=== PATIENT | female | born 1985 | race Caucasian/White ===

== ENCOUNTER 2017-07-13 13:43 | Emergency (ER) | payer OTHER ==
[~2017-07-13] VITALS: Ht 182.9 cm; Wt 109.0 kg
[2017-07-13 13:45] VITALS: BP 127/81; PULSE 112; RESP 18; TEMP 98.4; O2SAT 99
[2017-07-13 14:55] LABS: AUTOMATED NEUTROPHIL # 9.3 TH/MM3 (1.8-7.7); BASOPHIL # 0.1 TH/MM3 (0-0.2); BASOPHIL % 0.7 % (0.0-2.0); EOSINOPHIL # 0.1 TH/MM3 (0-0.4); HEMATOCRIT 37.1 % (35.0-46.0); HEMO FLAGS DIFF FINAL; LYMPH % 21.8 % (9.0-44.0); LYMPHOCYTE # 2.8 TH/MM3 (1.0-4.8); MEAN CELL VOLUME 87.8 FL (80.0-100.0); MEAN CORPUSCULAR HEMOGLOBIN 30.2 PG (27.0-34.0); MEAN CORPUSCULAR HGB CONC 34.4 % (32.0-36.0); MONO % 4.6 % (0.0-8.0); NEUT % 71.9 % (16.0-70.0); PLATELET COUNT 195 TH/MM3 (150-450); RED BLOOD COUNT 4.23 MIL/MM3 (4.00-5.30); RED CELL DISTRIBUTION WIDTH 13.1 % (11.6-17.2); WHITE BLOOD COUNT 12.9 TH/MM3 (4.0-11.0)
[2017-07-13 14:59] LABS: BACTERIA, URINE FEW /hpf; BLOOD, URINE NEG (NEG); COMMENT (UR) CULT NOT INDICATED; CULTURE IF INDICATED CULT NOT INDICATED; GLUCOSE,URINE NEG (NEG); KETONE, URINE TRACE mg/dL (NEG); NITRITE,URINE NEG (NEG); PH, URINE 6.5 (5.0-8.5); URINE COLOR LIGHT-YELLOW (YELLW/STRAW)
[2017-07-13] MEDS ORDERED: ACETAMINOPHEN 500 MG CPLT PO ONE (15:00)
[2017-07-13 15:05] LABS: APTT (PATIENT) 29.3 SEC (24.3-30.1); INTERNATIONAL NORMALIZED RATIO 0.9 RATIO; PROTHROMBIN TIME - PATIENT 10.2 SEC (9.8-11.6)
--- NOTE | 2017-07-13 15:14 | PD ---
HPI Chief Complaint: Abdominal Pain Time Seen by Provider: 14:44 Travel History International Travel<30 days: No Contact w/Intl Traveler<30days: No Traveled to known affect area: No History of Present Illness HPI 32-year-old female presents to emergency department complaining of right lower quadrant pain since Thursday afternoon. Patient describes this pain as constant, 7 out of 10 with occasional sharp pain. Denies radiation of pain. Pain not associated with food. States that she has had no appetite and "feels sick" since Thursday. She does have occasional nausea without vomiting or diarrhea. Patient denies fever, chills. Denies vaginal discharge or irritation. Denies dysuria or other urinary complaints. She saw her occupational therapy technician today where she did an ultrasound and confirmed the viability of the fetus. Her occupational therapy technician recommended she come to the emergency department for concern of appendicitis. Patient denies chronic medical issues or medication use. Patient took Tylenol yesterday for pain which provided her no relief and has not taken anything today. PFSH Past Medical History ?: Social History Tobacco Use: No Allergies-Medications (Allergen,Severity, Reaction): Coded Allergies: No Known Allergies (Unverified , 07/13/17) Reported Meds & Prescriptions Reported Meds & Active Scripts Active Macrobid (Nitrofurantoin Monoh/Nitrofur Macro) 100 Mg Cap 100 Mg PO BID 7 Days Reported ( Vit-Ferrous Fumarate) 27 Mg Iron-1 Mg Tab 1 Tab PO DAILY Review of Systems Except as stated in HPI: all other systems reviewed are Neg Physical Exam Narrative GENERAL: Well-developed well-nourished SKIN: Focused skin assessment warm/dry. HEAD: Atraumatic. Normocephalic. EYES: Pupils equal and round. No scleral icterus. No injection or drainage. ENT: No nasal bleeding or discharge. Mucous membranes pink and moist. NECK: Trachea midline. No JVD. CARDIOVASCULAR: Regular rate and rhythm. No murmur appreciated. RESPIRATORY: No accessory muscle use. Clear to auscultation. Breath sounds equal bilaterally. GASTROINTESTINAL: Abdomen soft, nondistended. Hepatic and splenic margins not palpable. Negative psoas, TTP to left and right lower quadrants. Negative Rovsing's. Negative [place] or ecchymosis of her abdomen. Positive rebound. Left lower and right lower quadrants. MUSCULOSKELETAL: No obvious deformities. No clubbing. No cyanosis. No edema. NEUROLOGICAL: Awake and alert. No obvious cranial nerve deficits. Motor grossly within normal limits. Normal speech. PSYCHIATRIC: Appropriate mood and affect; insight and judgment normal. Data Data Last Documented VS Vital Signs Date Time Temp Pulse Resp B/P (MAP) Pulse Ox O2 Delivery O2 Flow Rate FiO2 07/13/17 19:30 07/13/17 16:09 95 18 98 Room Air 07/13/17 13:45 98.4 Orders Orders Beta Hcg (Quant/Titer) (07/13/17 14:02) Complete Blood Count With Diff (07/13/17 14:02) Comprehensive Metabolic Panel (07/13/17 14:02) Lipase (07/13/17 14:02) Prothrombin Time / Inr (Pt) (07/13/17 14:02) Act Partial Throm Time (Ptt) (07/13/17 14:02) Urinalysis - C+S If Indicated (07/13/17 14:02) Acetaminophen (Tylenol) (07/13/17 15:00) Us Abdomen Lower Limited (07/13/17 ) Piperacil-Tazo 3.375 Gm Premix (Zosyn 3. (07/13/17 15:30) Sodium Chlorid 0.9% 500 Ml Inj (Ns 500 M (07/13/17 15:30) Mri Abdomen W/O Contrast (07/13/17 ) Nitrofurantoin Monohyd Macrocr (Macrobid (07/13/17 19:15) Ed Discharge Order (07/13/17 19:04) Labs Laboratory Tests Test 07/13/17 14:41 White Blood Count 12.9 TH/MM3 Red Blood Count 4.23 MIL/MM3 Hemoglobin 12.8 GM/DL Hematocrit 37.1 % Mean Corpuscular Volume 87.8 FL Mean Corpuscular Hemoglobin 30.2 PG Mean Corpuscular Hemoglobin Concent 34.4 % Red Cell Distribution Width 13.1 % Platelet Count 195 TH/MM3 Mean Platelet Volume 8.6 FL Neutrophils (%) (Auto) 71.9 % Lymphocytes (%) (Auto) 21.8 % Monocytes (%) (Auto) 4.6 % Eosinophils (%) (Auto) 1.0 % Basophils (%) (Auto) 0.7 % Neutrophils # (Auto) 9.3 TH/MM3 Lymphocytes # (Auto) 2.8 TH/MM3 Monocytes # (Auto) 0.6 TH/MM3 Eosinophils # (Auto) 0.1 TH/MM3 Basophils # (Auto) 0.1 TH/MM3 CBC Comment DIFF FINAL Differential Comment Prothrombin Time 10.2 SEC Prothromb Time International Ratio 0.9 RATIO Activated Partial Thromboplast Time 29.3 SEC Urine Color LIGHT-YELLOW Urine Turbidity CLEAR Urine pH 6.5 Urine Specific [place] 1.002 Urine Protein NEG mg/dL Urine Glucose (UA) NEG mg/dL Urine Ketones TRACE mg/dL Urine Occult Blood NEG Urine Nitrite NEG Urine Bilirubin NEG Urine Urobilinogen LESS THAN 2.0 MG/DL Urine Leukocyte Esterase SMALL Urine RBC LESS THAN 1 /hpf Urine WBC 2 /hpf Urine Bacteria FEW /hpf Microscopic Urinalysis Comment CULT NOT INDICATED Blood Urea Nitrogen 5 MG/DL Creatinine 0.68 MG/DL Random Glucose 81 MG/DL Total Protein 7.4 GM/DL Albumin 3.1 GM/DL Calcium Level 8.7 MG/DL Alkaline Phosphatase 85 U/L Aspartate Amino Transf (AST/SGOT) 14 U/L Alanine Aminotransferase (ALT/SGPT) 18 U/L Total Bilirubin 0.2 MG/DL Sodium Level 135 MEQ/L Potassium Level 3.3 MEQ/L Chloride Level 101 MEQ/L Carbon Dioxide Level 24.6 MEQ/L Anion Gap 9 MEQ/L Estimat Glomerular Filtration Rate 100 ML/MIN Lipase 111 U/L Human Chorionic Gonadotropin, Quant 81611 MIU/ML [facility] Medical Decision Making Medical Screen Exam Complete: Yes Emergency Medical Condition: Yes Differential Diagnosis Appendicitis versus round ligament pain versus nonspecific abdominal pain Narrative Course 32-year-old female presents to emergency department complaining of right lower quadrant pain since Thursday afternoon. Patient describes this pain as constant, 7 out of 10 with occasional sharp pain. Denies radiation of pain. Pain not associated with food. States that she has had no appetite and "feels sick" since Thursday. She does have occasional nausea without vomiting or diarrhea. Patient denies fever, chills. Denies vaginal discharge or irritation. Denies dysuria or other urinary complaints. She saw her occupational therapy technician today where she did an ultrasound and confirmed the viability of the fetus. Her occupational therapy technician recommended she come to the emergency department for concern of appendicitis. Patient denies chronic medical issues or medication use. Patient took Tylenol yesterday for pain which provided her no relief and has not taken anything today. Physical exam demonstrates concern for appendicitis. Vital signs: Tachycardic at 114, Fluid challenge for tachycardia. Labs: WBC 12.9, likely secondary to status Zosyn administered in ED. Ultrasound: unable to visualize appendix. Discussed risks vs benefits to MRI and CT. MRI chosen but caused significant delay in disposition. MRI visualized a non-inflamed appendix and no radiographic cause of pt symptoms. Because of bacteriuria, symptoms, and status, treat for UTI. Discharged with macrobid and continue Tylenol outpatient. I had an extensive discussion with pt and family regarding likely diagnosis and recommended follow up with occupational therapy technician tomorrow. Return to the ED for worsening symptoms. Diagnosis Primary Impression: UTI (urinary tract infection) during Qualified Codes: O23.40 - Unspecified infection of urinary tract in , unspecified trimester Additional Impression: Abdominal pain during Qualified Codes: O26.899 - Other specified related conditions, unspecified trimester; R10.9 - Unspecified abdominal pain Referrals: Transformation Lead Additional Instructions: If your symptoms persist or worsen return to the emergency department Follow-up with her occupational therapy technician within 2 days Scripts Nitrofurantoin Monohydrate Macrocrystals (Macrobid) 100 Mg Cap 100 MG PO BID for Infection for 7 Days, #14 CAP 0 Refills Prov: Merry Rojas MD 07/13/17 Disposition: 01 DISCHARGE HOME Condition: Stable Denita Dominguez Jul 13, 2017 15:14
[2017-07-13 15:17] LABS: ALT (GPT) 18 U/L (10-53); ANION GAP 9 MEQ/L (5-15); AST (GOT) 14 U/L (15-37); BICARBONATE 24.6 MEQ/L (21.0-32.0); BLOOD UREA NITROGEN 5 MG/DL (7-18); CHLORIDE 101 MEQ/L (98-107); GLOMERULAR FILTRATION RATE 100 ML/MIN (>89); POTASSIUM 3.3 MEQ/L (3.5-5.1); SODIUM (NA) 135 MEQ/L (136-145)
[2017-07-13] MEDS ORDERED: PIPERACIL-TAZO 3.375 GM PREMIX 50 ML IV ONE (15:30)
[2017-07-13] MEDS ORDERED: SODIUM CHLORID 0.9% 500 ML INJ 500 ML IV ONE (15:30)
[2017-07-13 15:36] LABS: ALKALINE PHOSPHATASE 85 U/L (45-117); BETA HCG QUANT 30669 MIU/ML (0-5); TOTAL BILIRUBIN ADULT 0.2 MG/DL (0.2-1.0)
--- NOTE | 2017-07-13 15:48 | PD ---
Physical Exam Date Seen by Provider: Jul 13, 2017 Narrative Patient presents with the chief complaint of right lower quadrant abdominal pain. Onset was 5 days ago. It is about 14 weeks . She was seen by her parking meter collector today who recommended that she come to the emergency department for further evaluation of possible appendicitis Data Data Last Documented VS Vital Signs Date Time Temp Pulse Resp B/P (MAP) Pulse Ox O2 Delivery O2 Flow Rate FiO2 07/13/17 15:37 18 07/13/17 13:45 98.4 112 127/81 (96) 99 Room Air Orders Orders Beta Hcg (Quant/Titer) (07/13/17 14:02) Complete Blood Count With Diff (07/13/17 14:02) Comprehensive Metabolic Panel (07/13/17 14:02) Lipase (07/13/17 14:02) Prothrombin Time / Inr (Pt) (07/13/17 14:02) Act Partial Throm Time (Ptt) (07/13/17 14:02) Urinalysis - C+S If Indicated (07/13/17 14:02) Acetaminophen (Tylenol) (07/13/17 15:00) Us Abdomen Lower Limited (07/13/17 ) Piperacil-Tazo 3.375 Gm Premix (Zosyn 3. (07/13/17 15:30) Sodium Chlorid 0.9% 500 Ml Inj (Ns 500 M (07/13/17 15:30) Labs Laboratory Tests Test 07/13/17 14:41 White Blood Count 12.9 TH/MM3 Red Blood Count 4.23 MIL/MM3 Hemoglobin 12.8 GM/DL Hematocrit 37.1 % Mean Corpuscular Volume 87.8 FL Mean Corpuscular Hemoglobin 30.2 PG Mean Corpuscular Hemoglobin Concent 34.4 % Red Cell Distribution Width 13.1 % Platelet Count 195 TH/MM3 Mean Platelet Volume 8.6 FL Neutrophils (%) (Auto) 71.9 % Lymphocytes (%) (Auto) 21.8 % Monocytes (%) (Auto) 4.6 % Eosinophils (%) (Auto) 1.0 % Basophils (%) (Auto) 0.7 % Neutrophils # (Auto) 9.3 TH/MM3 Lymphocytes # (Auto) 2.8 TH/MM3 Monocytes # (Auto) 0.6 TH/MM3 Eosinophils # (Auto) 0.1 TH/MM3 Basophils # (Auto) 0.1 TH/MM3 CBC Comment DIFF FINAL Differential Comment Prothrombin Time 10.2 SEC Prothromb Time International Ratio 0.9 RATIO Activated Partial Thromboplast Time 29.3 SEC Urine Color LIGHT-YELLOW Urine Turbidity CLEAR Urine pH 6.5 Urine Specific [place] 1.002 Urine Protein NEG mg/dL Urine Glucose (UA) NEG mg/dL Urine Ketones TRACE mg/dL Urine Occult Blood NEG Urine Nitrite NEG Urine Bilirubin NEG Urine Urobilinogen LESS THAN 2.0 MG/DL Urine Leukocyte Esterase SMALL Urine RBC LESS THAN 1 /hpf Urine WBC 2 /hpf Urine Bacteria FEW /hpf Microscopic Urinalysis Comment CULT NOT INDICATED Blood Urea Nitrogen 5 MG/DL Creatinine 0.68 MG/DL Random Glucose 81 MG/DL Total Protein 7.4 GM/DL Albumin 3.1 GM/DL Calcium Level 8.7 MG/DL Alkaline Phosphatase 85 U/L Aspartate Amino Transf (AST/SGOT) 14 U/L Alanine Aminotransferase (ALT/SGPT) 18 U/L Total Bilirubin 0.2 MG/DL Sodium Level 135 MEQ/L Potassium Level 3.3 MEQ/L Chloride Level 101 MEQ/L Carbon Dioxide Level 24.6 MEQ/L Anion Gap 9 MEQ/L Estimat Glomerular Filtration Rate 100 ML/MIN Lipase 111 U/L Human Chorionic Gonadotropin, Quant 47898 MIU/ML MDM Supervised Visit with GIOVANI: Yes Narrative Course I, Dr. Rojas, have reviewed the advance practice practitioner's documentation and am in agreement, met with the patient face to face, made the diagnosis, and the medical decision making was done by me. *My assessment and Findings: The patient walked to the bathroom without any apparent discomfort. She has basically diffuse abdominal pain. It does seem worse in the right lower quadrant. Please see Denita Dominguez PA-C's note for further details, lab and radiology results, final diagnosis and disposition. Condition: Stable Merry Rojas MD Jul 13, 2017 15:48
[2017-07-13 16:09] VITALS: BP 102/61; PULSE 95; RESP 18; O2SAT 98
--- NOTE | 2017-07-13 16:17 | RADRPT ---
EXAM DATE/TIME: 07/13/2017 15:35 [facility] COMPARISON: No previous studies available for comparison. INDICATIONS : Abdominal pain. MEDICAL HISTORY : . SURGICAL HISTORY : None. ENCOUNTER: Initial ACUITY: 4-6 days PAIN SCORE: 4/10 LOCATION: Right lower quadrant AREA EVALUATED: Right lower quadrant. FINDINGS: Ultrasound examination does not demonstrate a definite appendix, free fluid, or focal fluid collectio ns in the right lower quadrant. CONCLUSION: 1. Appendix is not visualized. Kingsley Nicholson MD on July 13, 2017 at 16:13 Board Certified Radiologist. This report was verified electronically.
[2017-07-13] MEDS ORDERED: TRICTAB PO (18:16)
--- NOTE | 2017-07-13 18:51 | RADRPT ---
EXAM DATE/TIME: 07/13/2017 17:39 [facility] COMPARISON: US ABDOMEN - LOWER LIMITED, July 13, 2017, 15:35. INDICATIONS : Appendicitis. Pain, loss of appetite, and nausea. 14 weeks gestation. MEDICAL HISTORY : . SURGICAL HISTORY : [place] teeth removal. ENCOUNTER: Subsequent ACUITY: 4-6 days PAIN SCORE: 3/10 LOCATION: Abdomen. TECHNIQUE: Multiplanar, multisequence magnetic resonance imaging of the abdomen was performed without contrast. FINDINGS: Examination was performed for evaluation of the appendix. The appendix has a normal appearance measur ing 4 mm in diameter. There are no surrounding inflammatory changes appreciated. Terminal ileum also has a normal appearance. There is no significant free fluid in the pelvis. There is a single intrauterine gestation identified. Please note that this examination was not perfor med for evaluation of the fetus. Urinary bladder demonstrates no abnormality. The visualized portions of the liver, kidneys, and spleen are within normal limits. CONCLUSION: Appendix is normal. Additionally, no acute finding is identified within the abdomen or pelvis. Octavio Gallardo MD on July 13, 2017 at 18:46 Board Certified Radiologist. This report was verified electronically.
[2017-07-13] MEDS ORDERED: MACR100C2 PO (19:02)
[2017-07-13] MEDS ORDERED: NITROFURANTOIN MONOHYD MACROCR 100 MG CAP PO ONE (19:15)
== END 2017-07-13 19:37 | disposition home or self-care (01) ==
LOC: NEPD 13:43
DX: O23.42 Unspecified infection of urinary tract in pregnancy, second trimester (principal); O26.892 Other specified pregnancy related conditions, second trimester; R10.31 Right lower quadrant pain; Z3A.14 14 weeks gestation of pregnancy
CPT/HCPCS: 74181; 76705; 80053; 81001; 83690; 84702; 85025; 85610; 85730; 96365; 96366; 99285; J2543; J7040

== ENCOUNTER 2018-01-19 09:16 | Inpatient (IN) | payer OTHER ==
[~2018-01-19] VITALS: Ht 182.9 cm; Wt 117.0 kg
[2018-01-19] VITALS (74 sets, daily range): BP systolic 68–159; BP diastolic 43–124; PULSE 89–248; RESP 16–18; TEMP 98.1–98.2
[~2018-01-19 09:16] MED LIST: MACR100C2 PO; TRICTAB PO
[2018-01-19] MEDS ORDERED: LACTATED RINGER'S 1000 ML INJ 1,000 ML IV PRN (09:19)
[2018-01-19] MEDS ORDERED: LACTATED RINGER'S 1000 ML INJ 1,000 ML IV SCH (09:19)
--- NOTE | 2018-01-19 09:27 | HHI.HP ---
HPI Chief Complaint postdates labor induction Date Seen: January 19, 2018 Time Seen: 09:20 Travel History International Travel<30 Days: No Contact w/Intl Traveler<30Days: No Known Affected Area: No History of Present Illness HPI 32 yo with zelaya IUP at 40w6d by 13 week sonogram seen in office for care, no spontaneous labor, now postdates, for labor induction. When in office 01/18/18 was 3/50/-1, has proven pelvis. Plan for pitocin/AROM induction. Pt c/o mild cramping, no regular contractions, no LOF or VB, endorses good FM. Pain 2/10 low pelvis, pressure. Weeks Gestation: 41 Para: 1 : 2 Last Menstrual Period: Apr 16, 2017 Miscarriage: 0 : 0 History Past Medical History Narrative Medical negative Obstetric History Obstetric History G1 = FT 39 wks female infant "Adyson" G2 = current male fetus Past Surgical History Surgical History: No Previous Surgery Family History Family History: Negative Social History Alcohol Use: No Tobacco Use: No Substance Abuse: No Allergies-Medications (Allergen,Severity, Reaction): Coded Allergies: No Known Allergies (Unverified , 07/13/17) Home Meds Active Scripts Nitrofurantoin Monohydrate Macrocrystals (Macrobid) 100 Mg Cap, 100 MG PO BID for Infection for 7 Days, #14 CAP 0 Refills Prov:Merry Rojas MD 07/13/17 Reported Medications Vit-Ferrous Fumarate () 27 Mg Iron-1 Mg Tab, 1 TAB PO DAILY for Nutritional Supplement, #30 TAB 0 Refills 07/13/17 Review of Systems General / Constitutional: Weight Gain, No: Fever, Chills, Other Eyes: No: Diploplia, Blurred Vision, Visual changes, Pain, Photophobia HENT: No: Headaches, Vertigo, Lightheadedness Cardiovascular: No: Irregular Rhythm, Chest Pain or Discomfort, Palpitations, Tachycardia, Syncope, Varicosities, Edema, Cyanosis Respiratory: No: Cough, Short of Breath, Other Gastrointestinal: No: Nausea, Vomiting, Diarrhea Genitourinary: Pelvic Pain (pressure), No: Decreased Urinary Output, Oliguria Musculoskeletal: No: Limited ROM, Weakness, Cramping, Edema, Pain Skin: No Rash, No Itching, No Dryness, No Lumps, No Change in Pigmentation, No Change in Nails, No Alopecia, No Lesions Neurologic: No: Weakness, Dizziness, Syncope, Focal Abnormalities, Coordination Problem, Headache, Slurred Speech, Seizures Psychiatric: No: Depression, Suicidal Ideations, Homicidal Ideation Endocrine: No: Heat Intolerance, Cold Intolerance, Polydipsia, Polyuria, Other Physical Exam Narrative GENERAL: Well-nourished, well-developed patient. SKIN: Warm and dry. HEAD: Normocephalic and atraumatic. EYES: No scleral icterus. No injection or drainage. ENT: No nasal drainage noted. Mucous membranes pink. Airway patent. NECK: Supple, trachea midline. No JVD. CARDIOVASCULAR: Regular rate and rhythm without murmurs, gallops, or rubs. RESPIRATORY: Breath sounds equal bilaterally. No accessory muscle use. BREASTS: deferred. ABDOMEN/GI: Abdomen soft, non-tender, bowel sounds present, no rebound, no guarding Gravid to [41] weeks size Fundal Height: [41] GENITOURINARY: External Genitalia: intact and normal in appearance Cervix: [mid] Dilatation: [3] Effacement: [50] Station: [-1] Presentation: [vtx] Membranes: [intact] Uterine Contractions: [irreg] FHT's: 140s in office 01/18/18; NST pending currently EXTREMITIES: No cyanosis or edema. BACK: Nontender without obvious deformity. No CVA tenderness. NEUROLOGICAL: Awake and alert. Motor and sensory grossly within normal limits. Five out of 5 muscle strength in all muscle groups. Normal speech. Caprini VTE Risk Assessment Caprini VTE Risk Assessment: No/Low Risk (score <= 1) VTE Pharm Contraindication: Epidural catheter Caprini Risk Assessment Model Point Value = 1 Point Value = 2 Point Value = 3 Point Value = 5 Age 41-60 Minor surgery BMI > 25 kg/m2 Swollen legs Varicose veins or History of unexplained or recurrent spontaneous Oral contraceptives or hormone replacement Sepsis (< 1 month) Serious lung disease, including pneumonia (< 1 month) Abnormal pulmonary function Acute myocardial infarction Congestive heart failure (< 1 month) History of inflammatory bowel disease Medical patient at bed rest Age 61-74 Arthroscopic surgery Major open surgery (> 45 min) Laparoscopic surgery (> 45 min) Malignancy Confined to bed (> 72 hours) Immobilizing plaster cast Central venous access Age >= 75 History of VTE Family history of VTE Factor V Leiden Prothrombin 13215T Lupus anticoagulant Anticardiolipin antibodies Elevated serum homocysteine Heparin-induced thrombocytopenia Other congenital or acquired thrombophilia Stroke (< 1 month) Elective arthroplasty Hip, pelvis, or leg fracture Acute spinal cord injury (< 1 month) Prophylaxis Regimen Total Risk Factor Score Risk Level Prophylaxis Regimen 0-1 Low Early ambulation 2 Moderate Order ONE of the following: *Sequential Compression Device (SCD) *Heparin 5000 units SQ BID 3-4 Higher Order ONE of the following medications: *Heparin 5000 units SQ TID *Enoxaparin/Lovenox 40 mg SQ daily (WT < 150 kg, CrCl > 30 mL/min) *Enoxaparin/Lovenox 30 mg SQ daily (WT < 150 kg, CrCl > 10-29 mL/min) *Enoxaparin/Lovenox 30 mg SQ BID (WT < 150 kg, CrCl > 30 mL/min) AND/OR *Sequential Compression Device (SCD) 5 or more Highest Order ONE of the following medications: *Heparin 5000 units SQ TID (Preferred with Epidurals) *Enoxaparin/Lovenox 40 mg SQ daily (WT < 150 kg, CrCl > 30 mL/min) *Enoxaparin/Lovenox 30 mg SQ daily (WT < 150 kg, CrCl > 10-29 mL/min) *Enoxaparin/Lovenox 30 mg SQ BID (WT < 150 kg, CrCl > 30 mL/min) AND *Sequential Compression Device (SCD) Data Data Vital Signs Reviewed: Yes Orders Orders Admit To Inpatient (01/19/18 ) Code Status (01/19/18:19) Vital Signs (Adult) .Per protocol (01/19/18:19) Activity Oob Ad Gladis (01/19/18:19) Heart (01/19/18:19) Amnioinfusion (01/19/18:) Urinary Catheter Management .ONCE (01/19/18:19) Diet Liquid (01/19/18 Breakfast) Lactated Ringer's 1000 Ml Inj (Lr 1000 M (01/19/18 09:19) Lactated Ringer's 1000 Ml Inj (Lr 1000 M (01/19/18 09:19) Sodium Chlorid 0.9% 500 Ml Inj (Ns 500 M (01/19/18 09:30) Sodium Chlor 0.9% 1000 Ml Inj (Ns 1000 M (01/19/18 09:39) Lidocaine 1% Inj (50 Ml) (Xylocaine 1% I (01/19/18 09:30) Citric Acid-Sodium Citrate Liq (Bicitra (01/19/18 09:30) Fentanyl Inj (Fentanyl Inj) (01/19/18 09:30) Fentanyl Inj (Fentanyl Inj) (01/19/18:30) Complete Blood Count With Diff (01/19/18:) Hold Clot (01/19/18:) Abo/Rh Blood Type (01/19/18:) Urinalysis - C+S If Indicated (01/19/18:) Drug Screen, Random Urine (01/19/18:) Ob/Psych Drug Screen, Urine (01/19/18:) Resp Oxygen Non Rebreathe Mask (01/19/18 ) ^ Epidural / Intrathecal Infus (01/19/18:) Oxytocin 30 Units-500ml Premix (Pitocin (01/19/18 09:30) Lidocaine 1% Inj (50 Ml) (Xylocaine 1% I (01/19/18:30) Light Mineral Oil (Muri-Lube Oil) (01/19/18:) ^ Non Stress Test (01/19/18:) Response To Medication .Post New Med Administration, Reaction (01/19/18:) ^ Discontinue Medication (01/19/18:) Oxytocin Drip:Individualized (01/19/18:30) Inpatient Certification (01/19/18 ) Specimen To Be Collected PRN (01/19/18:) Specimen To Be Collected PRN (01/19/18:) Promethazine (Phenergan) (01/19/18:) Group B Strep: Negative Assessment/Plan Problem List: (1) Post-dates ICD Codes: O48.0 - Post-term Status: Acute Qualifiers: Qualified Codes: O48.0 - Post-term Assessment and Plan 32 yo with single IUP at 40w6d, presents for postdates labor induction' 1) IOL: start with pitocin, AROM as needed, pt aware of r/b/a including risk of failure, risk of need for , voices understanding and consents to induction 2) GBS neg 3) status: male, vertex, EFW 8.5# Discharge Planning routine, 2-3d PP Ashanti Villanueva MD January 19, 2018 09:27
[2018-01-19] MEDS ORDERED: LIDOCAINE HCL 1% 50 ML VIAL INFIL PRN (09:30)
[2018-01-19] MEDS ORDERED: PROMETHAZINE HCL 25 MG TAB PO PRN (09:30)
[2018-01-19] MEDS ORDERED: MINERAL OIL 10 ML VIAL TOPICAL PRN (09:30)
[2018-01-19] MEDS ORDERED: LIDOCAINE HCL 1% 50 ML VIAL I-DERMAL PRN (09:30)
[2018-01-19] MEDS ORDERED: OXYTOCIN 30 UNITS-500ML PREMIX 500 ML IV ONE (09:30)
[2018-01-19] MEDS ORDERED: OXYTOCIN 30 UNITS-500ML PREMIX 500 ML IV PRN (09:30)
[2018-01-19] MEDS ORDERED: SODIUM CHLORID 0.9% 500 ML INJ 500 ML IV PRN (09:30)
[2018-01-19] MEDS ORDERED: CITRIC ACID-SODIUM CITRATE LIQ 30 ML UDC PO SCH (09:30)
[2018-01-19] MEDS ORDERED: SODIUM CHLOR 0.9% 1000 ML INJ 1,000 ML IV PRN (09:39)
[2018-01-19 10:07] LABS: AUTOMATED NEUTROPHIL # 6.3 TH/MM3 (1.8-7.7); BASOPHIL % 0.5 % (0.0-2.0); EOSINOPHIL # 0.1 TH/MM3 (0-0.4); HEMATOCRIT 36.9 % (35.0-46.0); HEMOGLOBIN 12.4 GM/DL (11.6-15.3); LYMPH % 22.5 % (9.0-44.0); MEAN CELL VOLUME 87.4 FL (80.0-100.0); MEAN CORPUSCULAR HEMOGLOBIN 29.3 PG (27.0-34.0); MEAN CORPUSCULAR HGB CONC 33.5 % (32.0-36.0); MEAN PLATELET VOLUME 8.8 FL (7.0-11.0); MONOCYTE # 0.4 TH/MM3 (0-0.9); PLATELET COUNT 206 TH/MM3 (150-450); RED BLOOD COUNT 4.22 MIL/MM3 (4.00-5.30); RED CELL DISTRIBUTION WIDTH 13.6 % (11.6-17.2); WHITE BLOOD COUNT 8.9 TH/MM3 (4.0-11.0)
--- NOTE | 2018-01-19 12:13 | PD.LABORPN ---
Subjective Subjective doing well, mild contractions, no LOF or VB, good FM Objective Vital Signs Vital Signs Date Time Temp Pulse Resp B/P (MAP) Pulse Ox O2 Delivery O2 Flow Rate FiO2 01/19/18 11:30 89 112/71 (85) 01/19/18 11:07 17 01/19/18 11:00 92 109/74 (86) 01/19/18 10:30 93 105/63 (77) 01/19/18 10:22 99 116/71 (86) 01/19/18 10:00 98.2 01/19/18 09:34 18 01/19/18 09:32 123 135/83 (100) Objective Pelvic Exam: Cervix: [mid] Dilatation: [3] Effacement: [50] Station: [-2] Presentation: [vtx] Membranes: [AROM'd clear] Uterine Contractions: [irregular, not tracing well] FHT's: Category: [I] Baseline: [130s] Reactive: [y] Variability: [y] Decels: [n] Weeks Gestation: 41 Assessment/Plan Problem List: (1) Post-dates ICD Codes: O48.0 - Post-term Status: Acute Qualifiers: Qualified Codes: O48.0 - Post-term Assessment and Plan 32 yo with zelaya IUP at 40w6d admit for postdates IOL 1) IOL: on pitocin, AROM'd clear, continue active mgmt 2) GBS neg 3) status: vtx Cat I tracing EFW 8.5Ashanti Reed MD January 19, 2018 12:13
[2018-01-19] MEDS ORDERED: fentaNYL 2MCG-BUPIV 0.125% INJ 100 ML ONE (12:28)
[2018-01-19] MEDS ORDERED: ePHEDrine/NS 25 MG/5 ML SYRINGE ONE ×2 (12:28→13:57)
[2018-01-19] MEDS ORDERED: ONDANSETRON HCL 4 MG/2 ML VIAL ONE (12:48)
[2018-01-19] MEDS ORDERED: LIDOCAINE 2%/EPINEPHrine PF 1:200,000 20ML SDV ONE (13:08)
[2018-01-19 15:24] LABS: BILIRUBIN, URINE NEG (NEG); BLOOD, URINE NEG (NEG); GLUCOSE,URINE NEG (NEG); KETONE, URINE 10 mg/dL (NEG); NITRITE,URINE NEG (NEG); URINE COLOR LIGHT-YELLOW (YELLW/STRAW); URINE LEUKOCYTE ESTERASE NEG (NEG)
[2018-01-19] MEDS ORDERED: DIPHTH/TETANUS/ACEL PERTUSSIS (BOOSTER) 0.5 ML VIAL/PFS IM ONE (16:00)
[2018-01-19] MEDS ORDERED: MEASLES, MUMPS, RUBELLA VACCINE 0.5 ML VIAL SQ ONE (16:00)
--- NOTE | 2018-01-19 17:12 | PD.LABORPN ---
Subjective Subjective feeling numb from epidural, feeling vaginal pressure Objective Vital Signs Vital Signs Date Time Temp Pulse Resp B/P (MAP) Pulse Ox O2 Delivery O2 Flow Rate FiO2 01/19/18 16:45 105 126/77 (93) 01/19/18 16:40 101 01/19/18 16:35 100 01/19/18 16:30 103 116/71 (86) 01/19/18 16:00 107 01/19/18 16:00 105 96/57 (70) 01/19/18 15:53 98.1 18 01/19/18 15:50 106 01/19/18 15:45 100 01/19/18 15:45 18 01/19/18 15:45 105 91/56 (68) 01/19/18 15:40 108 01/19/18 15:35 110 01/19/18 15:30 108 98/59 (72) 01/19/18 15:30 18 01/19/18 15:30 112 01/19/18 15:25 106 01/19/18 15:20 112 01/19/18 15:15 103 01/19/18 15:15 110 105/55 (72) 01/19/18 15:15 18 01/19/18 15:09 18 01/19/18 15:00 107 87/51 (63) 01/19/18 15:00 119 01/19/18 14:58 18 01/19/18 14:55 116 01/19/18 14:50 126 01/19/18 14:46 210 122/50 (74) 01/19/18 14:45 120 01/19/18 14:40 104 01/19/18 14:35 112 01/19/18 14:34 18 01/19/18 14:30 116 18 155/124 (134) 01/19/18 14:26 128 102/56 (71) 01/19/18 14:25 126 01/19/18 14:20 123 01/19/18 14:15 125 84/63 (70) 01/19/18 14:15 239 01/19/18 14:10 130 18 01/19/18 14:05 121 01/19/18 14:04 121 125/102 (110) 01/19/18 14:01 100/57 (71) 01/19/18 14:00 133 01/19/18 13:58 248 109/73 (85) 01/19/18 13:58 18 01/19/18 13:56 193 95/51 (66) 01/19/18 13:55 104 01/19/18 13:54 143 68/48 (55) 01/19/18 13:50 107 01/19/18 13:50 105 107/53 (71) 01/19/18 13:50 18 01/19/18 13:45 104 01/19/18 13:45 103 18 130/76 (94) 01/19/18 13:40 114 01/19/18 13:40 96 137/101 (113) 01/19/18 13:36 113 133/63 (86) 01/19/18 13:35 101 01/19/18 13:30 127 01/19/18 13:30 18 01/19/18 13:30 108 142/107 (119) 01/19/18 13:25 104 129/79 (96) 01/19/18 13:25 111 01/19/18 13:20 111 01/19/18 13:20 97 129/97 (108) 01/19/18 13:17 103 122/82 (95) 01/19/18 12:57 100 16 123/79 (94) 01/19/18 11:30 89 112/71 (85) 01/19/18 11:07 17 01/19/18 11:00 92 109/74 (86) 01/19/18 10:30 93 105/63 (77) 01/19/18 10:22 99 116/71 (86) 01/19/18 10:00 98.2 01/19/18 09:34 18 01/19/18 09:32 123 135/83 (100) Objective Pelvic Exam: Cervix: [mid] Dilatation: [6] Effacement: [70] Station: [-1] Presentation: [vtx] Membranes: [AROM'd clear earlier] Uterine Contractions: [q3-4 min] FHT's: Category: [I] Baseline: [150s] Reactive: [y] Variability: [y] Decels: [n] Weeks Gestation: 41 Pt started active labor?: Yes Medical induction of labor?: Yes Artificial rupture of membrane: Yes Assessment/Plan Problem List: (1) Post-dates ICD Codes: O48.0 - Post-term Status: Acute Qualifiers: Qualified Codes: O48.0 - Post-term Assessment and Plan progressing well in labor anticipate Ashanti Villanueva MD January 19, 2018 17:12
[2018-01-19] MEDS ORDERED: LIDOCAINE HCL 1% PF 5 ML AMPULE ONE (18:03)
[2018-01-19] MEDS ORDERED: WITCH HAZEL 50%/GLYCERIN 12.5% 40 PAD JAR TOPICAL PRN (18:30)
[2018-01-19] MEDS ORDERED: OXYTOCIN 30 UNITS-500ML PREMIX 500 ML IV SCH (18:30)
[2018-01-19] MEDS ORDERED: ZOLPIDEM TARTRATE 5 MG TAB PO PRN (18:30)
[2018-01-19] MEDS ORDERED: DOCUSATE SODIUM 50 MG/SENNA 8.6 MG TAB PO PRN (18:30)
[2018-01-19] MEDS ORDERED: BENZOCAINE 20% TOPICAL SPRAY 60 ML CAN TOPICAL PRN (18:30)
[2018-01-19] MEDS ORDERED: oxyCODONE/ACETAMINOPHEN 5 MG/325 MG TAB PO PRN (18:30)
[2018-01-19] MEDS ORDERED: ONDANSETRON ODT 4 MG TAB PO PRN (18:30)
[2018-01-19] MEDS ORDERED: ALUMINUM/MAGNESIUM/SIMETH 30 ML CUP PO PRN (18:30)
[2018-01-19] MEDS ORDERED: ACETAMINOPHEN 325 MG TAB PO PRN (18:30)
[2018-01-19] MEDS ORDERED: SODIUM CHLORIDE 0.9% FLUSH 10 ML FLUSH IV FLUSH PRN (18:30)
--- NOTE | 2018-01-19 19:41 | PD.OB.DELI ---
Weeks gestation: 41 Pt started active labor?: Yes Medical induction of labor?: Yes Artificial rupture of membrane: Yes Anesthesia: Epidural Episiotomy: None Vaginal Delivery: Normal Presentation: Occiput anterior Nuchal Cord: None Delayed cord clamping (45 sec): Yes Infant: Male Delivery date: January 19, 2018 Delivery time: 17:58 One Minute : 9 Five Minute : 9 Weight: 8#3oz Placenta: Spontaneous delivery, Intact, 3 vessel cord Laceration: Vaginal laceration, 1 deg Repair: Chromic running Estimated blood loss: 100 mL Ashanti Villanueva MD January 19, 2018 19:41
[2018-01-19] MEDS ORDERED: ACETAMINOPHEN 1000 MG/100 ML 100 ML IV ONE (19:45)
[2018-01-19] MEDS: IBUPROFEN 800 MG TAB PO PRN (20:27)
[2018-01-19] MEDS: SODIUM CHLORIDE 0.9% FLUSH 10 ML FLUSH IV FLUSH SCH (21:00)
[2018-01-19] MEDS: oxyCODONE/ACETAMINOPHEN 5 MG/325 MG TAB PO PRN (23:26)
[2018-01-20] MEDS ORDERED: ACETAMINOPHEN 1000 MG/100 ML 100 ML IV PRN (04:00)
[2018-01-20] MEDS: oxyCODONE/ACETAMINOPHEN 5 MG/325 MG TAB PO PRN (04:23)
[2018-01-20] MEDS: IBUPROFEN 800 MG TAB PO PRN ×2 (04:23→15:57)
[2018-01-20 08:45] VITALS: BP 120/75; PULSE 102; RESP 16; TEMP 98.6
[2018-01-20] MEDS ORDERED: LIDOCAINE HCL 1% 20 ML VIAL ONE (09:23)
[2018-01-20 09:30] VITALS: TEMP 98.6
[2018-01-20 10:00] VITALS: O2SAT 95
--- NOTE | 2018-01-20 10:37 | HHI.OB ---
Subjective Post Day: 1 Remarks PPD#1, s/p , spinal NORRIS, blood patch done this morning Objective Vitals/I&O Vital Signs Date Time Temp Pulse Resp B/P (MAP) Pulse Ox O2 Delivery O2 Flow Rate FiO2 01/20/18 10:00 101 11 118/80 (93) 95 01/20/18 09:45 104 16 123/81 (95) 95 01/20/18 09:30 98.6 01/20/18 09:30 119 12 125/85 (98) 96 01/20/18 09:15 110 22 123/73 (90) 97 01/20/18 09:11 103 20 116/69 (85) 96 01/20/18 08:45 102 16 120/75 (90) 01/19/18 20:00 18 01/19/18 19:45 122 127/68 (87) 01/19/18 19:38 124 115/76 (89) 01/19/18 19:31 132 96/68 (77) 01/19/18 19:15 129 127/65 (85) 01/19/18 19:00 117 117/61 (79) 01/19/18 18:45 117 134/70 (91) 01/19/18 18:39 18 01/19/18 18:30 119 18 124/66 (85) 01/19/18 18:28 120 124/43 (70) 01/19/18 18:16 118 139/62 (87) 01/19/18 18:15 18 01/19/18 18:01 128 159/97 (117) 01/19/18 17:46 148 132/112 (119) 01/19/18 17:19 98.2 18 01/19/18 17:15 115 137/99 (112) 01/19/18 17:10 117 01/19/18 17:05 119 01/19/18 17:00 111 148/121 (130) 01/19/18 17:00 206 01/19/18 16:45 105 126/77 (93) 01/19/18 16:40 101 01/19/18 16:35 100 01/19/18 16:30 103 116/71 (86) 01/19/18 16:00 107 01/19/18 16:00 105 96/57 (70) 01/19/18 15:53 98.1 18 01/19/18 15:50 106 18 15:45 100 18 15:45 18 01/19/18 15:45 105 91/56 (68) 18 15:40 108 18 15:35 110 01/19/18 15:30 108 98/59 (72) 01/19/18 15:30 18 01/19/18 15:30 112 18 15:25 106 18 15:20 112 18 15:15 103 01/19/18 15:15 110 105/55 (72) 01/19/18 15:15 18 01/19/18 15:09 18 01/19/18 15:00 107 87/51 (63) 01/19/18 15:00 119 01/19/18 14:58 18 01/19/18 14:55 116 01/19/18 14:50 126 01/19/18 14:46 210 122/50 (74) 01/19/18 14:45 120 01/19/18 14:40 104 01/19/18 14:35 112 01/19/18 14:34 18 01/19/18 14:30 116 18 155/124 (134) 01/19/18 14:26 128 102/56 (71) 01/19/18 14:25 126 01/19/18 14:20 123 01/19/18 14:15 125 84/63 (70) 01/19/18 14:15 239 01/19/18 14:10 130 18 01/19/18 14:05 121 01/19/18 14:04 121 125/102 (110) 01/19/18 14:01 100/57 (71) 01/19/18 14:00 133 18 13:58 248 109/73 (85) 01/19/18 13:58 18 01/19/18 13:56 193 95/51 (66) 18 13:55 104 18 13:54 143 68/48 (55) 18 13:50 107 18 13:50 105 107/53 (71) 18 13:50 18 01/19/18 13:45 104 01/19/18 13:45 103 18 130/76 (94) 01/19/18 13:40 114 01/19/18 13:40 96 137/101 (113) 01/19/18 13:36 113 133/63 (86) 01/19/18 13:35 101 01/19/18 13:30 127 01/19/18 13:30 18 01/19/18 13:30 108 142/107 (119) 01/19/18 13:25 104 129/79 (96) 01/19/18 13:25 111 01/19/18 13:20 111 01/19/18 13:20 97 129/97 (108) 01/19/18 13:17 103 122/82 (95) 01/19/18 12:57 100 16 123/79 (94) 01/19/18 11:30 89 112/71 (85) 01/19/18 11:07 17 01/19/18 11:00 92 109/74 (86) Objective Remarks GENERAL: Well-nourished, well-developed patient. CARDIOVASCULAR: Regular rate and rhythm without murmurs, gallops, or rubs. RESPIRATORY: Breath sounds equal bilaterally. No accessory muscle use. ABDOMEN/GI: Abdomen soft, non-tender. Fundus: Firm, non-tender at umbilicus. GENITOURINARY: Light to moderate bleeding. EXTREMITIES: No cyanosis or edema, non-tender, without signs of DVT. Medications and IVs Current Medications Medications (Trade) Dose Ordered Sig/Josee Route Start Time Stop Time Status Last Admin (NS Flush) 2 ml BID IV FLUSH 01/19/18 21:00 (NS Flush) 2 ml UNSCH PRN IV FLUSH 01/19/18 18:30 (Tylenol) 650 mg Q4H PRN PO 01/19/18 18:30 (Motrin) 800 mg Q8H PRN PO 01/19/18 18:30 01/20/18 04:23 (Percocet 5-325 Mg) 1 tab Q4H PRN PO 01/19/18 18:30 01/20/18 04:23 (Percocet 5-325 Mg) 2 tab Q4H PRN PO 01/19/18 18:30 01/20/18 08:57 (Americaine 20% Top Spr) 1 spray Q4H PRN TOPICAL 01/19/18 18:30 01/19/18 22:34 (Tucks Pads) 1 applic QID PRN TOPICAL 01/19/18 18:30 01/19/18 22:34 (Bing-Colace) 2 tab Q12H PRN PO 01/19/18 18:30 (Ambien) 5 mg HS PRN PO 01/19/18 18:30 (Mag-Al Plus Susp Liq) 15 ml Q8H PRN PO 01/19/18 18:30 (Zofran Odt) 4 mg Q6H PRN PO 01/19/18 18:30 Acetaminophen 100 ml @ 400 mls/hr Q8H PRN IV 01/20/18 04:00 Assessment/Plan Problem List: (1) Post-dates ICD Codes: O48.0 - Post-term Status: Acute Qualifiers: Qualified Codes: O48.0 - Post-term Assessment and Plan 32 yo with single IUP at 40w6d, presents for postdates labor induction' 1) IOL: start with pitocin, AROM as needed, pt aware of r/b/a including risk of failure, risk of need for , voices understanding and consents to induction 2) GBS neg 3) status: male, vertex, EFW 8.5# 01/20/18 : PPD#1, spinal NORRIS, blood patch this AM, notes slight improvement. Reinforced bedrest with blood patch, Discharge Planning routine, @3d PP, pending results with blood patch. Paulino Landeros MD January 20, 2018 10:37
[2018-01-20] MEDS ORDERED: LIDOCAINE HCL 1% 20 ML VIAL OTHER ONE (10:45)
--- NOTE | 2018-01-20 15:52 | HHI.DCPOC ---
Discharge Care Plan Diagnosis: (1) Normal vaginal delivery (2) Post-dates Your Health Problems Are: Vaginal delivery Report Symptoms to Your Doctor -Temperature above 100.5 degrees -Redness, of incision or excessive or foul smelling drainage -Unusual pain or calf pain -Increased vaginal bleeding -Painful or difficulty urinating -Feelings of extreme sadness or anxiety after 2 weeks Goals to Promote Your Health * To prevent worsening of your condition and complications * To maintain your health at the optimal level Directions to Meet Your Goals Take your medications as prescribed Follow your dietary instruction Follow activity as directed Ensure plenty of rest for recovery Drink fluids for hydration Keep your appointments as scheduled Take your immunizations and boosters as scheduled If your symptoms worsen call your PCP, if no PCP go to Urgent Care Center or Emergency Room Smoking is Dangerous to Your Health. Avoid second hand smoke Call the 24-hour crisis hotline for domestic abuse at Scout Tolentino MD January 20, 2018 15:52
[2018-01-20 20:00] VITALS: BP 125/70; PULSE 91; RESP 18; TEMP 98.7
[2018-01-21] MEDS: IBUPROFEN 800 MG TAB PO PRN ×2 (00:02→10:15)
[2018-01-21] MEDS: SODIUM CHLORIDE 0.9% FLUSH 10 ML FLUSH IV FLUSH SCH (08:41)
[2018-01-21] MEDS ORDERED: LIDOCAINE HCL 1% PF 5 ML AMPULE ONE (09:15)
--- NOTE | 2018-01-21 09:18 | HHI.OB ---
Subjective Post Day: 2 Remarks doing well, pain controlled, headache resolved after blood patch, ready for d/c home. Objective Vitals/I&O Vital Signs Date Time Temp Pulse Resp B/P (MAP) Pulse Ox O2 Delivery O2 Flow Rate FiO2 01/20/18 20:00 98.7 91 18 125/70 (88) 01/20/18 10:00 101 11 118/80 (93) 95 01/20/18 09:45 104 16 123/81 (95) 95 01/20/18 09:30 98.6 01/20/18 09:30 119 12 125/85 (98) 96 Objective Remarks GENERAL: Well-nourished, well-developed patient. CARDIOVASCULAR: Regular rate and rhythm without murmurs, gallops, or rubs. RESPIRATORY: Breath sounds equal bilaterally. No accessory muscle use. ABDOMEN/GI: Abdomen soft, non-tender. Fundus: Firm, non-tender at umbilicus. GENITOURINARY: Light to moderate bleeding. EXTREMITIES: No cyanosis or edema, non-tender, without signs of DVT. Medications and IVs Current Medications Medications (Trade) Dose Ordered Sig/Josee Route Start Time Stop Time Status Last Admin (NS Flush) 2 ml BID IV FLUSH 01/19/18 21:00 (NS Flush) 2 ml UNSCH PRN IV FLUSH 01/19/18 18:30 (Tylenol) 650 mg Q4H PRN PO 01/19/18 18:30 (Motrin) 800 mg Q8H PRN PO 01/19/18 18:30 01/21/18 00:02 (Percocet 5-325 Mg) 1 tab Q4H PRN PO 01/19/18 18:30 01/20/18 04:23 (Percocet 5-325 Mg) 2 tab Q4H PRN PO 01/19/18 18:30 01/20/18 08:57 (Americaine 20% Top Spr) 1 spray Q4H PRN TOPICAL 01/19/18 18:30 01/19/18 22:34 (Tucks Pads) 1 applic QID PRN TOPICAL 01/19/18 18:30 01/19/18 22:34 (Bing-Colace) 2 tab Q12H PRN PO 01/19/18 18:30 5/16/18 21:26 (Ambien) 5 mg HS PRN PO 01/19/18 18:30 (Mag-Al Plus Susp Liq) 15 ml Q8H PRN PO 01/19/18 18:30 (Zofran Odt) 4 mg Q6H PRN PO 01/19/18 18:30 Acetaminophen 100 ml @ 400 mls/hr Q8H PRN IV 01/20/18 04:00 Assessment/Plan Problem List: (1) Post-dates ICD Codes: O48.0 - Post-term Status: Acute Qualifiers: Qualified Codes: O48.0 - Post-term Assessment and Plan 32 yo s/p at 41w. 1. PPD #2: doing well, meeting milestones, d/c home today, discussed precautions, expectations and follow up. - s/p blood patch for spinal NORRIS, headache resolved. - male, circ today. Scout Tolentino MD January 21, 2018 09:18
[2018-01-21] MEDS ORDERED: IBUP-232 PO (09:43)
== END 2018-01-21 13:42 | disposition home or self-care (01) | DRG 775 ==
LOC: H2EA 09:16 → H1EA 22:04
PROVIDERS: ADMIT Obstetrics & Gynecology; ATTEND Obstetrics & Gynecology
PROC: 10E0XZZ Delivery of Products of Conception, External Approach (ICD-10-PCS; principal; 2018-01-19)
PROC: 10907ZC Drainage of Amniotic Fluid, Therapeutic from Products of Conception, Via Natural or Artificial Opening (ICD-10-PCS; 2018-01-19)
PROC: 3E033VJ Introduction of Other Hormone into Peripheral Vein, Percutaneous Approach (ICD-10-PCS; 2018-01-19)
PROC: 0HQ9XZZ Repair Perineum Skin, External Approach (ICD-10-PCS; 2018-01-19)
PROC: 00HU33Z Insertion of Infusion Device into Spinal Canal, Percutaneous Approach (ICD-10-PCS; 2018-01-19)
PROC: 3E0R3BZ Introduction of Anesthetic Agent into Spinal Canal, Percutaneous Approach (ICD-10-PCS; 2018-01-19)
PROC: 3E0R3GC Introduction of Other Therapeutic Substance into Spinal Canal, Percutaneous Approach (ICD-10-PCS; 2018-01-20)
DX: O48.0 Post-term pregnancy (principal); O99.89 Other specified diseases and conditions complicating pregnancy, childbirth and the puerperium; O70.0 First degree perineal laceration during delivery; G97.1 Other reaction to spinal and lumbar puncture; Y84.4 Aspiration of fluid as the cause of abnormal reaction of the patient, or of later complication, without mention of misadventure at the time of the procedure; R51 Headache; R20.0 Anesthesia of skin; Z3A.40 40 weeks gestation of pregnancy; Z37.0 Single live birth
CPT/HCPCS: 59025; 62273; 80307; 81001; 85025; 86900; 86901; J0131; J2405; J2590; J3010; J7120